=== PATIENT | male | born 1960 | race Caucasian/White ===

== ENCOUNTER 2017-11-22 20:15 | Emergency (ER) | payer SELFPAY ==
[2017-11-22 20:50] LABS: BASOPHILS % 0.3 (0.0-1.5); EOSINOPHILS % 0.5 % (0.0-6.8); MEAN CORPUSCULAR HEMOGLOBIN 32.5 pg (28.0-34.0); MEAN CORPUSCULAR VOLUME 93.4 fl (80.0-100.0); MONOCYTES % 3.3 % (0.0-11.0); NEUTROPHILS # 14.7 # k/uL (1.4-7.7)
[2017-11-22] MEDS: MORPHINE SULFATE 10 MG/ML CARTRIDGE IVP ONE ×2 (20:55→21:10)
[2017-11-22] MEDS: ONDANSETRON HCL/PF 4 MG/ 2ML VIAL IVP ONE (20:55)
[2017-11-22] MEDS ORDERED: 0.9 % SODIUM CHLORIDE 1,000 ML IV ONE (20:56)
[2017-11-22 21:00] LABS: eGFR (African) > 60; eGFR (Non-African) > 60
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
[2017-11-22] MEDS: 0.9 % SODIUM CHLORIDE 1,000 ML IV SCH (21:17)
[2017-11-22] MEDS: HYDROmorphone HCL/PF 2 MG/ML DISP.SYRIN IVP ONE (21:54)
[2017-11-23 00:21] VITALS: BP 143/74
--- NOTE | 2017-11-23 06:59 | Diagnostic Imaging Report ---
[facility] [address] [facility] [address] Report Submission Date: Nov 22, 2017 9:41:45 PM CDT Patient Study Name: MICHAEL CORMIER Date: Nov 22, 2017 9:12:37 PM CDT Modality Type: CT\SR Gender: M Description: CT ABD PELVIS W/ CON : 62 Institution: [facility] Physician: PASQUALE AVERY Computed tomography abdomen pelvis with contrast History: Abdominal pain and distention Findings: Transverse abdomen and pelvis sections are obtained after 96 mL intravenous Omnipaque 350. No comparisons are available. Extensive pancreatic and peripancreatic inflammation is present without necrosis , vascular thrombosis, or abscess. Bile ducts and gallbladder are normal in caliber. The lung bases, liver, kidneys, and spleen are unremarkable. 2 cm left and 1.7 cm right adrenal nodules are indeterminate after intravenous contrast administration. Mild aortoiliac atherosclerosis and multilevel thoracolumbar spondylosis are observed. Two supraumbilical ventral hernias are present, both containing omentum. Bowel loops exhibit normal caliber and wall thickness including a normal appendix. Pelvic sections reveal moderate rectal stool. The prostate is mildly enlarged. A small right inguinal hernia contains fat. The seminal vesicles and urinary bladder are unremarkable. Impression: 1. Acute uncomplicated pancreatitis. 2. 2 supraumbilical ventral hernias contain omentum. 3. Indeterminate bilateral adrenal nodules. Most incidental adrenal nodules are non hyperfunctioning adenomas. 4. Mild atherosclerosis, thoracolumbar spondylosis, prostate enlargement, and small right inguinal hernia noted. Electronically signed on Nov 22, 2017 9:41:45 PM CDT by: Patel PARKER
== END 2017-11-22 23:00 | disposition short-term general hospital (02) ==
LOC: ED 20:15
DX: K85.90 Acute pancreatitis without necrosis or infection, unspecified (principal)
CPT/HCPCS: 74177; 80053; 83690; 85025; 93005; J1170; J2270; J2405; J7030; 96365; 96366; 96375; 96376; 99285; Q9967; S1016